=== PATIENT | male | born 1970 | race Caucasian/White ===

== ENCOUNTER 2017-07-10 06:36 | Emergency (ER) | payer OTHER ==
[2017-07-10] MEDS ORDERED: SULFAMETHOX/TMP 800/160 MG 1 TAB PO ONE (07:15)
--- NOTE | 2017-07-10 07:18 | EDPHY ---
H & P Stated Complaint: pt thinks may have contracted herpes 4 days [employer], now thinks he has meningit Time Seen by Provider: 07/10/17 06:58 HPI/ROS: CHIEF COMPLAINT: Scrotum lesion HISTORY OF PRESENT ILLNESS: The patient is a 46-year-old man who comes to the emergency department complaining lesion on his scrotum that he 1st noticed couple of days ago. He has been placing tea tree oil and coconut oil on it. He has had no improvement. He became worried about herpes because he has had promiscuous sexual behavior recently. He also states that he has had some fullness in his face but is not sure how that is related. He looked on the Internet and wondered if he was having meningitis. No stiff neck, no fever, no altered mental status. REVIEW OF SYSTEMS: Constitutional: denies: chills, fever, recent illness, recent injury EENTM: denies: blurred vision, double vision, nose congestion Respiratory: denies: cough, shortness of breath Cardiac: denies: chest pain, irregular heart rate, lightheadedness, palpitations Gastrointestinal/Abdominal: denies: abdominal pain, diarrhea, nausea, vomiting, blood streaked stools Genitourinary: See HPI denies: dysuria, frequency, hematuria, pain Musculoskeletal: denies: joint pain, muscle pain Skin: denies: lesions, rash, jaundice, bruising Neurological: denies: headache, numbness, paresthesia, tingling, dizziness, weakness Hematologic/Lymphatic: denies: blood clots, easy bleeding, easy bruising Immunologic/allergic: denies: HIV/AIDS, transplant EXAM: GENERAL: Well-appearing, well-nourished and in no acute distress. HEAD: Atraumatic, normocephalic. EYES: Pupils equal round and reactive to light, extraocular movements intact, sclera anicteric, conjunctiva are normal. ENT: TMs normal, nares patent, oropharynx clear without exudates. Moist mucous membranes. NECK: Normal range of motion, supple without lymphadenopathy or JVD. LUNGS: Breath sounds clear to auscultation bilaterally and equal. No wheezes rales or rhonchi. HEART: Regular rate and rhythm without murmurs, rubs or gallops. ABDOMEN: Soft, nontender, normoactive bowel sounds. No guarding, no rebound. No masses appreciated. Patient has a small abscess that is already drained on his scrotum with surrounding cellulitis. No herpetic lesions. BACK: No CVA tenderness, no spinal tenderness, step-offs or deformities EXTREMITIES: Normal range of motion, no pitting or edema. No clubbing or cyanosis. NEUROLOGICAL: Cranial nerves II through XII grossly intact. Normal speech, normal gait. 5/5 strength, normal movement in all extremities, normal sensation PSYCH: Normal mood, normal affect. SKIN: Warm, dry, normal turgor, no visible rashes or lesions. Source: Patient Exam Limitations: No limitations - Medical/Surgical History Hx Asthma: No Hx Chronic Respiratory Disease: No Hx Diabetes: No Hx Cardiac Disease: No Hx Renal Disease: No Hx Cirrhosis: No Hx Alcoholism: No Hx HIV/AIDS: No Hx Splenectomy or Spleen Trauma: No Other PMH: bronchial cyst removed - Family History Significant Family History: No pertinent family hx - Social History Smoking Status: Never smoked Alcohol Use: Sober Drug Use: None Constitutional: Initial Vital Signs Temperature (C) 36.5 C 07/10/17 06:39 Heart Rate 95 07/10/17 06:39 Respiratory Rate 18 07/10/17 06:39 Blood Pressure 155/96 H 07/10/17 06:39 O2 Sat (%) 96 07/10/17 06:39 O2 Delivery Mode Room Air Allergies/Adverse Reactions: Milk Containing Products [dairy] Allergy (Verified 07/10/17 06:47) Home Medications: Medication Instructions Recorded Herbal Supplements 12/10/12 Sulfamethox/Tmp 800/160 mg 1 tab PO BID #14 tab 07/10/17 [Bactrim Ds] Medical Decision Making ED Course/Re-evaluation: The patient has a small scrotal abscess with surrounding cellulitis that is already drained. I will start him on Bactrim. We discussed at length the signs and symptoms for meningitis. The patient does not have any. We discussed lumbar puncture which I do not feel is indicated. The patient is relieved. Differential Diagnosis: Partial list of the Differential diagnosis considered include but were not limited to; cellulitis, abscess, herpes and although unlikely based on the history and physical exam, I also considered meningitis, sepsis. I discussed these differential diagnoses and the plan with the patient as well as the usual and expected course. The patient understands that the diagnosis is provisional and that in medicine we are not always correct and that further workup is often warranted. Usual and customary warnings were given. All of the patient's questions were answered. The patient was instructed to return to the emergency department should the symptoms at all worsen or return, otherwise to followup with the physician as we discussed. - Data Points Medications Given: Discontinued Medications Trimethoprim/Sulfamethoxazole (Bactrim Ds) 1 ea PO EDNOW ONE PRN Reason: Protocol Stop: 07/10/17 07:16 Last Admin: 07/10/17 07:18 Dose: 1 ea Departure - Departure Disposition: Home, Routine, Self-Care Clinical Impression: Scrotal abscess Condition: Fair Instructions: Abscess (ED) Referrals: NONE *PRIMARY CARE P,. [Primary Care Provider] - As per Instructions Prescriptions: Sulfamethox/Tmp 800/160 mg [Bactrim Ds] 1 tab PO BID #14 tab
[2017-07-10 07:20] VITALS: BP 116/103
== END 2017-07-10 07:25 | disposition home or self-care (01) ==
DX: N49.2 Inflammatory disorders of scrotum (principal)

== ENCOUNTER 2018-01-13 02:46 | Emergency (ER) | payer OTHER ==
[2018-01-13] MEDS ORDERED: IPRATROPIUM/ALBUTEROL 3 ML DEYVIAL IH ONE ×2 (03:31→04:11)
--- NOTE | 2018-01-13 04:11 | EDPHY ---
H & P Stated Complaint: c/o asthmatic sx related to seasonal allergies, worsening sob tonight Time Seen by Provider: 01/13/18 03:03 HPI/ROS: HPI The patient presents with shortness of breath which has been present intermittently for the last month though worse tonight making it difficult for him to breathe. He says he has to take deep breaths to feel better and he was unable to sleep tonight because of this. He believes he has seasonal allergies over the last several years that sometimes induced asthma type symptoms. He is taking alternative medicines which he believes have antihistamine properties. Today he was out for a long 3 mi walk and he feels that exposures have triggered his symptoms tonight. He does not have any rhinorrhea though he does have tearing of his eyes. REVIEW OF SYSTEMS 10 systems were reviewed and negative with the exception of the elements mentioned in the history of present illness. PMHx: Seasonal allergies, followed by [facility] Hx: Lives by himself, nonsmoker PHYSICAL General Appearance: Alert, no distress Eyes: Pupils equal and round no pallor or injection ENT, Mouth: Mucous membranes moist Respiratory: There are no retractions, lungs are clear to auscultation Cardiovascular: Regular rate and rhythm Gastrointestinal: Abdomen is soft and non-tender, no masses, bowel sounds normal Neurological: A&O, moves all extremities Skin: Warm and dry, no rashes Musculoskeletal: Neck is supple non tender Extremities: symmetrical, full range of motion Psychiatric: Patient is oriented X 3, there is no agitation Source: Patient Exam Limitations: No limitations - Medical/Surgical History Hx Asthma: Yes Hx Chronic Respiratory Disease: No Hx Diabetes: No Hx Cardiac Disease: No Hx Renal Disease: No Hx Cirrhosis: No Hx Alcoholism: No Hx HIV/AIDS: No Hx Splenectomy or Spleen Trauma: No Other PMH: bronchial cyst removed, asthma associated with seasonal allergies - Social History Smoking Status: Never smoked Constitutional: Initial Vital Signs Temperature (C) 36.7 C 01/13/18 02:50 Heart Rate 91 01/13/18 02:50 Respiratory Rate 18 01/13/18 02:50 Blood Pressure 143/94 H 01/13/18 02:50 O2 Sat (%) 93 01/13/18 02:50 O2 Delivery Mode Room Air Allergies/Adverse Reactions: Milk Containing Products [dairy] Allergy (Verified 01/13/18 02:54) Home Medications: Medication Instructions Recorded Herbal Supplements 12/10/12 Medical Decision Making Differential Diagnosis: 47-year-old man with history of seasonal allergies with occasional respiratory symptoms presents with shortness of breath tonight. He believes his symptoms were triggered after being outside for a long walk today. He is taking natural antihistamines though these have not helped his symptoms much. Here he is very well-appearing, has normal oxygen saturation and is breathing comfortably. Lungs are clear and I do not appreciate any wheezes. I have given him a DuoNeb half dose because he was concerned about side effects. This improved his symptoms and he took the 2nd half of the DuoNeb and felt much better. I will give him an albuterol inhaler to go home with. I have advised him to follow up with his primary care doctor's to see if referral to pulmonology or allergy is necessary. He is happy with this plan. I have considered pneumonia, however his lungs are clear and he does not have a cough. I have considered URI as well. - Data Points Medications Given: Discontinued Medications Albuterol Sulfate (Proventil Inh Prepack) 1 mdi TAKEHOME EDNOW ONE Stop: 01/13/18 04:13 Last Admin: 01/13/18 04:21 Dose: 1 mdi Albuterol/Ipratropium (Duoneb) 1.5 ml IH EDNOW ONE Stop: 01/13/18 03:32 Last Admin: 01/13/18 03:35 Dose: 1.5 ml Albuterol/Ipratropium (Duoneb) 1.5 ml IH EDNOW ONE Stop: 01/13/18 04:12 Last Admin: 01/13/18 04:22 Dose: 1.5 ml Departure - Departure Disposition: Home, Routine, Self-Care Clinical Impression: Shortness of breath Condition: Good Instructions: Albuterol (By breathing), Asthma (ED), How Your Lungs Work (ED) Additional Instructions: I recommend that you use the inhaler as needed for any shortness of breath that you have. You could consider using an antihistamine such as Claritin or Zyrtec for your symptoms as well. Please follow-up with your primary care doctor in the next 1-2 days. Referrals: ELIZABETH ALEJO MD [Non Staff Provider (MD)] - As per Instructions
[2018-01-13] MEDS ORDERED: ALBUTEROL INH PREPACK MDI TAKEHOME ONE (04:12)
[2018-01-13 07:03] VITALS: BP 140/89
== END 2018-01-13 07:02 | disposition home or self-care (01) ==
DX: R06.02 Shortness of breath (principal)

== ENCOUNTER 2018-05-30 14:29 | Emergency (ER) | payer OTHER ==
[2018-05-30 14:44] LABS: PLATELET COUNT 227 10^3/uL (150-400)
[2018-05-30] MEDS ORDERED: NS 1,000 ML IV ONE (15:19)
--- NOTE | 2018-05-30 15:21 | EDPHY ---
H & P Smoking Status: Never smoked Time Seen by Provider: 05/30/18 14:50 HPI/ROS: CHIEF COMPLAINT: Chest pain, fatigue HISTORY OF PRESENT ILLNESS: 47-year-old male presents to the emergency department by ambulance with 2 week history of nausea, decreased appetite, shortness of breath and fatigue. The patient states that he had some type of viral illness that started about 2 weeks ago and he is not sure if it just continues to linger. He has felt lightheaded. He has a "sensation" in the anterior part of his chest that feels "unstable". He denies any other associated chest pain. He has a history of anxiety and has had panic attacks in the past but he feels that this is different. He does not use any drugs or alcohol. He is concerned that this may be related to his thyroid. He does take a number of supplements that help to boost his testosterone including most recently started something called "Yvette". REVIEW OF SYSTEMS: Constitutional: No fever, no chills. Eyes: No double or blurry vision. ENT: No sore throat. Respiratory: Shortness of breath. No cough Cardiac: Chest pain as above Gastrointestinal: Decreased appetite, nausea. No abdominal pain, vomiting or diarrhea. Genitourinary: No dysuria. Musculoskeletal: No neck or back pain. Skin: No rashes. Neurological: No headache. (Radha Chinchillarina Edilberto) Past Medical/Surgical History: Anxiety (Poppy Chinchilla M) Social History: Single (Poppy Chinchilla) Physical Exam: General Appearance: Alert, no distress. 127/91, 94% on room air, heart rate 82 Eyes: Pupils equal and round. Extraocular motions are all intact. ENT: Mouth: Mucous membranes moist. Respiratory: No wheezing, rhonchi, or rales, lungs are clear to auscultation. Cardiovascular: Regular rate and rhythm. Gastrointestinal: Abdomen is soft and nontender, no masses, no rebound or guarding, bowel sounds normal. Neurological: Alert and oriented x 3, cranial nerves II through XII grossly intact Skin: Warm and dry, no rashes. Musculoskeletal: Nontender to palpate along the cervical, thoracic or lumbar spine. Neck is supple. Extremities: Full range of motion and no peripheral edema. Psychiatric: Patient is oriented X 3, there is no agitation. (AmorPoppy M) Constitutional: Initial Vital Signs Temperature (C) 36.9 C 05/30/18 14:32 Heart Rate 82 05/30/18 14:32 Respiratory Rate 18 05/30/18 14:32 Blood Pressure 127/91 H 05/30/18 14:32 O2 Sat (%) 96 05/30/18 14:32 O2 Delivery Mode Room Air Allergies/Adverse Reactions: Milk Containing Products [dairy] Allergy (Verified 05/30/18 14:33) Home Medications: Medication Instructions Recorded Herbal Supplements 12/10/12 Medical Decision Making - Diagnostics Imaging: I viewed and interpreted images myself - Diagnostics EKG Interpretation: EKG reveals normal sinus rhythm. This is reviewed with Dr. Adalid Queen. See interpretation in trace master. (Poppy Chinchilla) Imaging Results: Imaging Impressions Chest X-Ray 05/30/18 15:34 Impression: 1. Mild bronchitis/airways disease. 2. No definite focal pneumonia. 3. No pleural effusion or pneumothorax. ED Course/Re-evaluation: EKG reveals normal sinus rhythm. This is reviewed with Dr. Adalid Queen. Laboratory studies reveal normal chemistries and normal TSH. Troponin was 0. Complete blood cell count reveals elevated hemoglobin and hematocrit otherwise normal. Patient received IV normal saline. Chest x-ray reveals normal heart size. No evidence of focal pneumonia. Possible mild reactive airway disease. Case was discussed with Dr. Adalid Queen, secondary supervising physician, who did not directly evaluate the patient but agrees with treatment and plan. The patient feels comfortable being discharged home. He has a scheduled follow- up appointment with his primary care provider at [facility] on Sunday, tomorrow. (Poppy Chinchilla) I did not see this patient while he was in the emergency department. However his care was discussed with the PA while the patient was in the department. I agree with treatment plan and management (Adalid Queen) Differential Diagnosis: Shortness of breath including but not limited to pulmonary infectious process, COPD, asthma, pulmonary embolus and congestive heart failure. Weakness including but not limited to electrolyte abnormality, depression, anxiety, CVA, spinal cord abnormality, and infectious causes. (Poppy Chinchilla) - Data Points Laboratory Results: Laboratory Results 05/30/18 14:30 05/30/18 14:30 05/30/18 05/30/18 05/30/18 14:51 14:30 14:30 WBC RBC Hgb Hct MCV MCH MCHC RDW Plt Count MPV Neut % (Auto) Lymph % (Auto) Grady % (Auto) Eos % (Auto) Baso % (Auto) Nucleat RBC Rel Count Absolute Neuts (auto) Absolute Lymphs (auto) Absolute Monos (auto) Absolute Eos (auto) Absolute Basos (auto) Absolute Nucleated RBC Immature Gran % Immature Gran # Sodium 140 mEq/L mEq/L (135-145) Potassium 4.5 mEq/L mEq/L (3.5-5.2) Chloride 103 mEq/L mEq/L (97-110) Carbon Dioxide 25 mEq/l mEq/l (22-31) Anion Gap 12 mEq/L mEq/L (6-14) BUN 17 mg/dL mg/dL (7-23) Creatinine 1.1 mg/dL mg/dL (0.7-1.3) Estimated GFR > 60 Glucose 89 mg/dL mg/dL (70-100) Calcium 10.3 mg/dL mg/dL (8.5-10.4) POC Troponin I 0.00 ng/mL ng/mL (0.00-0.08) TSH 2.160 uIU/mL uIU/mL (0.465-4.680) 05/30/18 14:30 WBC 6.65 10^3/uL 10^3/uL (3.80-9.50) RBC 6.00 10^6/uL 10^6/uL (4.40-6.38) Hgb 18.2 g/dL H g/dL (13.7-17.5) Hct 54.1 % H % (40.0-51.0) MCV 90.2 fL fL (81.5-99.8) MCH 30.3 pg pg (27.9-34.1) MCHC 33.6 g/dL g/dL (32.4-36.7) RDW 12.6 % % (11.5-15.2) Plt Count 227 10^3/uL 10^3/uL (150-400) MPV 11.7 fL fL (8.7-11.7) Neut % (Auto) 61.0 % % (39.3-74.2) Lymph % (Auto) 29.0 % % (15.0-45.0) Grady % (Auto) 8.3 % % (4.5-13.0) Eos % (Auto) 0.9 % % (0.6-7.6) Baso % (Auto) 0.6 % % (0.3-1.7) Nucleat RBC Rel Count 0.0 % % (0.0-0.2) Absolute Neuts (auto) 4.06 10^3/uL 10^3/uL (1.70-6.50) Absolute Lymphs (auto) 1.93 10^3/uL 10^3/uL (1.00-3.00) Absolute Monos (auto) 0.55 10^3/uL 10^3/uL (0.30-0.80) Absolute Eos (auto) 0.06 10^3/uL 10^3/uL (0.03-0.40) Absolute Basos (auto) 0.04 10^3/uL 10^3/uL (0.02-0.10) Absolute Nucleated RBC 0.00 10^3/uL 10^3/uL (0-0.01) Immature Gran % 0.2 % % (0.0-1.1) Immature Gran # 0.01 10^3/uL 10^3/uL (0.00-0.10) Sodium Potassium Chloride Carbon Dioxide Anion Gap BUN Creatinine Estimated GFR Glucose Calcium POC Troponin I TSH Medications Given: Discontinued Medications Sodium Chloride (Ns) 1,000 mls @ 0 mls/hr IV ONCE ONE PRN Reason: Wide Open Stop: 05/30/18 15:20 Last Admin: 05/30/18 15:38 Dose: 1,000 mls Point of Care Test Results: Chemistry 05/30/18 14:51 POC Troponin I 0.00 ng/mL ng/mL (0.00-0.08) Departure - Departure Disposition: Home, Routine, Self-Care Clinical Impression: Fatigue Qualifiers: Fatigue type: unspecified Qualified Code(s): R53.83 - Other fatigue Chest pain Qualifiers: Chest pain type: unspecified Qualified Code(s): R07.9 - Chest pain, unspecified Condition: Good Instructions: Chest Pain (ED), Fatigue (ED) Additional Instructions: Keep scheduled follow-up appoint with her primary care provider on Sunday. Return to the emergency department sooner if you develop chest pain, shortness of breath, or if you feel worse in any way. Referrals: ELIZABETH ALEJO MD [Non Staff Provider (MD)] - 1-2 days without fail
--- NOTE | 2018-05-30 16:01 | CPEKG ---
Test Reason : OPEN Blood Pressure : / mmHG Vent. Rate : 085 BPM Atrial Rate : 085 BPM P-R Int : 173 ms QRS Dur : 083 ms QT Int : 352 ms P-R-T Axes : 050 -28 067 degrees QTc Int : 419 ms Sinus rhythm Borderline left axis deviation Minimal ST elevation, anterior leads Confirmed by Adalid Qeuen ([id number]) on 05/30/2018 4:01:02 PM Referred By: PHYSICIAN ED Confirmed By:Adalid Queen
[2018-05-30 17:14] VITALS: BP 122/79
== END 2018-05-30 17:14 | disposition home or self-care (01) ==
LOC: EDUNIT#
DX: R07.9 Chest pain, unspecified (principal); R53.83 Other fatigue
CPT/HCPCS: 84484-ER

== ENCOUNTER 2018-08-15 11:19 | Emergency (ER) | payer OTHER | END 2018-08-15 11:53 | disposition home or self-care (01) ==